=== PATIENT | male | born 1965 | race Caucasian/White ===

== ENCOUNTER 2017-02-24 12:46 | Emergency (ER) | payer OTHER ==
[2017-02-24 13:21] LABS: #Eosinphils 0.1 thou/uL (0.0-0.7); #Monocytes 0.4 thou/uL (0.11-0.59); #Neutrophils 7.5 thou/uL (1.40-6.50); %Basophils 0.4 % (0.0-1.0); %Eosinophils 0.5 % (0.0-10.0); %Lymphocytes 20.3 % (21.0-51.0); %Monocytes 3.9 % (0.0-10.0); Hematocrit 46.4 % (42.0-52.0); Mean Platelet Volume 7.1 fL (7.4-10.4); Red Blood Cell (RBC) Count 5.05 mill/uL (4.70-6.10)
[2017-02-24 13:44] LABS: ALT (SGPT) 17 U/L (8-55); AST (SGOT) 14 U/L (5-34); Alkaline Phosphatase 93 U/L (40-150); Anion Gap 19 mmol/L (10-20); BUN (Urea Nitrogen) 17 mg/dL (8.4-25.7); Bilirubin, Total 1.3 mg/dL (0.2-1.2); CK (CPK) 119 U/L (30-200); Calc. Creatinine Clearance 0 mL/min (70-130); Calcium 10.1 mg/dL (7.8-10.44); Carbon Dioxide 21 mmol/L (22-29); Chloride 96 mmol/L (98-107); Estimated GFR-MDRD 73; Globulin 3.3 g/dL (2.4-3.5)
[2017-02-24 13:47] LABS: Troponin I Less than 0.010 ng/mL (< 0.028)
[2017-02-24] MEDS ORDERED: Nitroglycerin 0.4 MG TAB (25 Tab Bottle) ONE (14:00)
[2017-02-24 14:06] LABS: PTT 27.1 SEC (22.9-36.1); Prothrombin Time 12.3 SEC (12.0-14.7)
--- NOTE | 2017-02-24 14:26 | RAD ---
PORTABLE CHEST ONE VIEW: Date: 02-24-17 Time: 1:33 p.m. History: Chest pain. FINDINGS: Comparison is made with exam of 10-27-16. The heart size is normal. The lungs are expanded without focal areas of consolidation, pneumothorax, or pleural effusions. IMPRESSION: No radiographic evidence of acute cardiopulmonary process. POS: [facility]
--- NOTE | 2017-02-24 16:06 | CT ---
CT OF THE CHEST WITH IV CONTRAST CT OF THE ABDOMEN AND PELVIS WITH IV CONTRAST 02/24/17 INDICATION: History of chest pain and shortness of breath. Patient is also having a productive cough. The patien t has had a 30 lb weight loss over the last few months. Patient is having painful swallowing with th e chest pain. FINDINGS: The lungs are clear. No pleural effusion or pneumothorax is evident. No enlarged lymph nodes are see n within the mediastinum, hilar, or axillary regions. Heart and great vessels appear within normal l imits. No focal hepatic lesion is evident. The visualized spleen is unremarkable appearing. The pancreas, adrenal glands and kidneys are normal appearing. The bladder is unremarkable appearing. The prostate is mildly enlarged. There is a mild amount of re tained stool within the colon. No definite drainable fluid collection is evident. There is no obstru ctive bowel gas pattern. There are old pedicle screw holes seen within the L5 vertebra, L4 vertebra and L3 vertebra. No defin ite acute osseous abnormality is evident. IMPRESSION: No definite acute abnormality seen. POS: [facility]
[2017-02-24 18:38] LABS: Troponin I Less than 0.010 ng/mL (< 0.028)
== END 2017-02-24 18:41 | disposition home or self-care (01) ==
LOC: ERS 12:46
DX: R07.89 Other chest pain (principal); E11.9 Type 2 diabetes mellitus without complications; Z87.891 Personal history of nicotine dependence; Z79.4 Long term (current) use of insulin
CPT/HCPCS: 36415; 71010; 71260; 74177; 80053; 82553; 83690; 83880; 84484; 85025; 85379; 93005; 94760

== ENCOUNTER 2017-05-13 07:58 | Inpatient (IN) | payer SELFPAY ==
[2017-05-13 08:36] LABS: #Eosinphils 0.2 thou/uL (0.0-0.7); #Lymphocytes 2.1 thou/uL (1.20-3.40); #Monocytes 0.4 thou/uL (0.11-0.59); #Neutrophils 8.7 thou/uL (1.40-6.50); %Basophils 0.3 % (0.0-1.0); %Eosinophils 1.4 % (0.0-10.0); %Lymphocytes 18.8 % (21.0-51.0); %Monocytes 3.2 % (0.0-10.0); %Neutrophils 76.3 % (42.0-75.0); Hemoglobin 17.4 g/dL (14.0-18.0); Mean Corpuscular HGB CONC 32.5 g/dL (32.0-36.0); Mean Corpuscular Hemoglobin 30.8 pg (27.0-31.0); Mean Corpuscular Volume 94.9 fl (80.0-94.0); Mean Platelet Volume 7.6 fL (7.4-10.4); Platelet Count 237 thou/uL (130-400); RBC Distribution Width 12.4 % (11.5-14.5); Red Blood Cell (RBC) Count 5.64 mill/uL (4.70-6.10); White Blood Cell (WBC) Count 11.4 thou/uL (4.8-10.8)
--- NOTE | 2017-05-13 08:38 | RAD ---
PORTABLE CHEST ONE VIEW: 05/13/2017 8:22 a.m. HISTORY: Chest pain. COMPARISON: 02/24/2017 FINDINGS: The heart size is normal. The lungs are well expanded without focal areas of consolidation, pneumoth orax, or pleural effusions. IMPRESSION: No radiographic evidence of acute cardiopulmonary process. POS: [facility]
[2017-05-13 08:49] LABS: Bicarbonate (HCO3v) 14.8 mmol/L (1.0-85.0); CO2 Tension (PvCO2) 30.5 mmHg (41.0-51.0); Calcium, Ionized 1.06 mmol/L (1.12-1.32); Hemoglobin - Calc 18.5 g/dL (12.0-18.0); O2 Tension (PvO2) 47.2 mmHg (35.0-45.0); Potassium 4.6 mmol/L (3.4-4.7); T. Carbon Dioxide 15.8 mmol/L (1.0-85.0); pH (Venous) 7.295 (7.35-7.45)
[2017-05-13] MEDS ORDERED: Insulin Regular 300 UNITS/3 ML VIAL ONE (08:50)
[2017-05-13 08:52] LABS: ALT (SGPT) 32 U/L (8-55); AST (SGOT) 17 U/L (5-34); Alkaline Phosphatase 76 U/L (40-150); Anion Gap 30 mmol/L (10-20); BUN (Urea Nitrogen) 22 mg/dL (8.4-25.7); Bilirubin, Total 1.6 mg/dL (0.2-1.2); CK (CPK) 51 U/L (30-200); Calc. Creatinine Clearance 0 mL/min (70-130); Calcium 10.9 mg/dL (7.8-10.44); Carbon Dioxide 16 mmol/L (22-29); Chloride 94 mmol/L (98-107); Estimated GFR-MDRD 65; Globulin 3.5 g/dL (2.4-3.5); Glucose 460 mg/dL (70-105); Lipase 6 U/L (8-78); Magnesium 1.6 mg/dL (1.6-2.6); Potassium 5.4 mmol/L (3.5-5.1); Protein, Total 8.5 g/dL (6.0-8.3); Sodium 135 mmol/L (136-145)
[2017-05-13 08:56] LABS: CKMB 0.7 ng/mL (0-6.6); Phosphorus 1.8 mg/dL (2.3-4.7); Troponin I Less than 0.010 ng/mL (< 0.028)
[2017-05-13 09:40] LABS: Bilirubin Negative (Negative); Blood, Urine Negative (Negative); Clarity CLEAR (Clear); Glucose, Urine (Dipstick) >=1000 mg/dL (Negative); Leukocyte Negative (Negative); Nitrite Negative (Negative); Protein, Urine (Dipstick) Negative (Neg-Trace); Specific Gravity, Urine 1.034 (1.002-1.036); Urobilinogen 0.2 mg/dL (0.2-1.0); pH, Urine 5.5 (5.0-9.0)
[2017-05-13] MEDS ORDERED: Insulin Regular 100 units/100 ml in NS IVPB SCH (10:45)
--- NOTE | 2017-05-13 12:02 | HP ---
DATE OF ADMISSION: 05/13/2017 CHIEF COMPLAINT: Diabetic ketoacidosis with dehydration and hypothermia. HISTORY OF PRESENT ILLNESS: The patient is a 52-year-old male who basically had been feeling fine on the day prior to admission. Then, on the day of admission, he began to have some burning chest pain . He had some nausea and vomiting twice. The pain went just shoulders and arms. Last time he was s een in my office was 1 month ago. There is no dyspnea, diaphoresis. Nothing relieved his pain. Whe n he came to the emergency room, he was initially evaluated under chest pain protocol and his results showed lactic acid at 6.9. His troponin was less than 0.01. CK-MB unremarkable; however, he did alfonso ve an elevated white count of 11.4. He was hemoconcentrated with hematocrit of 53.5 and hemoglobin 1 7.4. He was noted to have hyperkalemia at 5.4 and blood sugar 460. Chest x-ray unremarkable. He de nies any fever and chills. He did come back with greater than 80 ketones in his urine with an elevat ed beta hydroxybutyrate at 5.48. The ER doctor contacted Dr. Hummel about admission based on his alte red mental status as well and dehydration and the need for insulin drip while in the emergency room, the insulin drip was begun and heating blanket placed and as the patient was gradually resuscitated w ith fluids, heat, and insulin, he already has responded such that by my evaluation in the emergency r oom, his mental status has returned to baseline and he has no other further complaints at this time. PAST MEDICAL HISTORY: Noncompliant insulin-dependent diabetic for many years, most recently hospital ized in February for diabetic ketoacidosis. He has hypertension in the past, but since his extreme we ight loss, this has resolved. He has had chronic back pain in the past, but no longer is taking medi cation for that. PAST SURGICAL HISTORY: Includes 2 back surgeries and neck surgery. ALLERGIES: He has an allergic reaction to VANCOMYCIN. MEDICATIONS ON ADMISSION: Humalog and uses a sliding scale when he uses it. REVIEW OF SYSTEMS: GENERAL: He denies fever, chills, generally. HEENT: Denies blurred vision or d ischarge. ENT: No congestion, rhinorrhea discharge. CARDIOVASCULAR: He admits to chest pain radia ting to his left arm with burning sensation that has been worked up in the past and has negative. RE SPIRATORY: He denies cough, but has some mild shortness of breath. GENITOURINARY: Denies pain with urination or frequency. GASTROINTESTINAL: Admits to nausea and vomiting x2, but denies any abdomin al pain. MUSCULOSKELETAL: Denies any pain or swelling. SKIN: Without any rashes or lesions. NEUR OLOGIC: Denies headaches, blurred vision, and trouble with mentation. PHYSICAL EXAMINATION: VITAL SIGNS: On admission 133/76, pulse 78, respirations 20, O2 sat is 98% on room air. He had a co re temperature of 93.3. GENERAL: This is a well-developed, well-nourished male, alert, oriented, and cooperative. HEENT: Normocephalic and atraumatic. Pupils are equal, round, and reactive to light. Extraocular m uscles are intact. TMs, nares clear. Pharynx is dry. NECK: Supple, trachea midline, no mass or tenderness. CHEST: Clear to auscultation. HEART: Regular rate and rhythm with rate in the 90s. ABDOMEN: Soft and nontender without organomegaly. GENITOURINARY: Deferred. EXTREMITIES: Without clubbing, cyanosis, or edema. Normal range of motion present. SKIN: Without acute rashes or lesions. Poor turgor. NEUROLOGIC: Cranial nerves are intact. Mental status is not clear and at baseline. Cranial nerves are intact. Gait and cerebellar function untested. Sensory exam is grossly normal. LABORATORY DATA AND IMAGING DATA: WBC 11.4, hemoglobin 17.4, hematocrit 53.5 with platelets at 237. Sodium 135, potassium 5.4, chloride 94, CO2 of 16, BUN is 22, creatinine 1.18, glucose of 460, lacti c acid elevated at 6.9. Chest x-ray shows no acute process. ASSESSMENT: 1. Diabetic ketoacidosis. 2. Dehydration. 3. Hypothermia. 4. General medical noncompliance. PLAN: Will be IV fluids, IV insulin, serial reevaluation and warming blankets and going to [facility] on insulin drip.
[2017-05-13] MEDS ORDERED: Ondansetron HCl/PF 4 MG/2 ML Vial ONE (12:15)
[2017-05-13 12:42] LABS: Lactic Acid 2.5 mmol/L (0.5-2.2)
[2017-05-13] MEDS ORDERED: Acetaminophen 325 MG TAB PO PRN (16:11)
[2017-05-13] MEDS ORDERED: Ondansetron HCl/PF 4 MG/2 ML Vial SLOW IVP PRN (16:11)
[2017-05-13 17:01] VITALS: BMI 23.2
[2017-05-13] MEDS: traMADol HCl 50 MG TAB PO PRN ×2 (17:10→22:01)
[2017-05-13] MEDS: Sodium Chloride 0.9% 1,000 ML IV SCH (17:10)
[2017-05-13] MEDS ORDERED: FLU VACC QS2017-18 36 mo. & older 0.5 ML SYRINGE IM ONE (17:30)
[2017-05-13] MEDS ORDERED: Dextrose 50% Abboject 50 ML SYRINGE IVP PRN (22:29)
[2017-05-13] MEDS ORDERED: Dextrose 5% in Water 1,000 ML IV PRN (22:29)
[2017-05-13] MEDS ORDERED: Insulin Regular 300 UNITS/3 ML VIAL SC PRN (22:29)
[2017-05-13] MEDS ORDERED: Temazepam 15 MG CAP PO SCH (23:00)
[2017-05-14] MEDS: Sodium Chloride 0.9% 1,000 ML IV SCH ×2 (00:05→08:52)
[2017-05-14] MEDS: traMADol HCl 50 MG TAB PO PRN ×2 (02:21→06:08)
[2017-05-14 05:43] LABS: #Basophils 0.1 thou/uL (0.0-0.2); #Eosinphils 0.1 thou/uL (0.0-0.7); #Lymphocytes 1.7 thou/uL (1.20-3.40); #Monocytes 0.6 thou/uL (0.11-0.59); #Neutrophils 4.6 thou/uL (1.40-6.50); %Basophils 1.1 % (0.0-1.0); %Eosinophils 1.5 % (0.0-10.0); %Lymphocytes 24.6 % (21.0-51.0); %Monocytes 7.9 % (0.0-10.0); %Neutrophils 64.9 % (42.0-75.0); Hemoglobin 13.1 g/dL (14.0-18.0); Mean Corpuscular HGB CONC 32.6 g/dL (32.0-36.0); Mean Corpuscular Hemoglobin 30.6 pg (27.0-31.0); Mean Corpuscular Volume 93.8 fl (80.0-94.0); Mean Platelet Volume 7.4 fL (7.4-10.4); Platelet Count 163 thou/uL (130-400); Red Blood Cell (RBC) Count 4.29 mill/uL (4.70-6.10)
[2017-05-14] MEDS: Insulin Regular 300 UNITS/3 ML VIAL SC PRN ×2 (06:06→12:32)
[2017-05-14 06:13] LABS: Anion Gap 16 mmol/L (10-20); BUN (Urea Nitrogen) 11 mg/dL (8.4-25.7); Calc. Creatinine Clearance 104 mL/min (70-130); Calcium 8.2 mg/dL (7.8-10.44); Carbon Dioxide 18 mmol/L (22-29); Chloride 103 mmol/L (98-107); Estimated GFR-MDRD Greater than 90; Glucose 323 mg/dL (70-105); Potassium 4.3 mmol/L (3.5-5.1); Sodium 133 mmol/L (136-145)
[2017-05-14] MEDS ORDERED: Multivit, Therapeutic 1 TAB PO SCH (09:00)
[2017-05-14 09:01] VITALS: TEMP 97.7
[2017-05-14 12:05] VITALS: BP 108/68
[2017-05-14] MEDS ORDERED: Temazepam 15 MG CAP PO SCH (21:00)
== END 2017-05-14 12:42 | disposition home or self-care (01) | DRG 639 ==
LOC: ERS 07:58 → IMCU/EMU 16:52 → SURG A 05-14 02:18
PROVIDERS: ADMIT Specialist; ATTEND Specialist
DX: E11.10 Type 2 diabetes mellitus with ketoacidosis without coma (principal); T68.XXXA Hypothermia, initial encounter; E86.0 Dehydration; Z91.19 Patient's noncompliance with other medical treatment and regimen
CPT/HCPCS: 36415; 36416; 71010; 80048; 80053; 81003; 82010; 82330; 82553; 82803; 83605; 83690; 83735; 83880; 84100; 84484; 85025; 87040; 87086; 87804; 93005; 96361; 96365; 96366; 96372; 96375; A4216; J1815; J2405; J7050

== ENCOUNTER 2017-09-23 21:23 | Emergency (ER) | payer SELFPAY ==
[2017-09-23 21:59] LABS: #Basophils 0.1 thou/uL (0.0-0.2); #Eosinphils 0.2 thou/uL (0.0-0.7); #Lymphocytes 3.6 thou/uL (1.20-3.40); #Monocytes 0.6 thou/uL (0.11-0.59); #Neutrophils 6.4 thou/uL (1.40-6.50); %Basophils 0.9 % (0.0-1.0); %Eosinophils 1.9 % (0.0-10.0); %Lymphocytes 33.3 % (21.0-51.0); %Monocytes 5.1 % (0.0-10.0); %Neutrophils 58.9 % (42.0-75.0); Hemoglobin 14.5 g/dL (14.0-18.0); Mean Corpuscular HGB CONC 34.9 g/dL (32.0-36.0); Mean Corpuscular Hemoglobin 32.5 pg (27.0-31.0); Mean Corpuscular Volume 93.2 fl (80.0-94.0); Mean Platelet Volume 6.8 fL (7.4-10.4); Platelet Count 217 thou/uL (130-400); RBC Distribution Width 12.8 % (11.5-14.5); Red Blood Cell (RBC) Count 4.48 mill/uL (4.70-6.10); White Blood Cell (WBC) Count 10.9 thou/uL (4.8-10.8)
--- NOTE | 2017-09-23 22:07 | RAD ---
THREE VIEWS OF THE RIGHT HAND 09/23/17 INDICATION: Right thumb swelling and redness. COMPARISON: None. FINDINGS: No acute fracture or subluxation is evident. 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 No radiopaque fo reign body is demonstrated. IMPRESSION: 1. No acute osseous abnormality. 2. No radiopaque foreign body. POS: [facility]
[2017-09-23 22:19] LABS: ALT (SGPT) 25 U/L (8-55); AST (SGOT) 19 U/L (5-34); Albumin 4.1 g/dL (3.5-5.0); Alkaline Phosphatase 101 U/L (40-150); Anion Gap 11 mmol/L (10-20); BUN (Urea Nitrogen) 14 mg/dL (8.4-25.7); Bilirubin, Total 0.4 mg/dL (0.2-1.2); CRP (Inflammatory) Less than 0.50 mg/dL (= or < 0.5); Calc. Creatinine Clearance 0 mL/min (70-130); Calcium 9.3 mg/dL (7.8-10.44); Carbon Dioxide 27 mmol/L (22-29); Chloride 104 mmol/L (98-107); Estimated GFR-MDRD Greater than 90; Globulin 2.9 g/dL (2.4-3.5); Glucose 196 mg/dL (70-105); Potassium 4.1 mmol/L (3.5-5.1); Sodium 138 mmol/L (136-145)
[2017-09-23] MEDS ORDERED: Ketorolac Tromethamine 60 MG/2 ML VIAL ONE (22:55)
[2017-09-23] MEDS ORDERED: Ketorolac Tromethamine 30 MG/ML VIAL ONE (23:43)
[2017-09-24] MEDS ORDERED: Lidocaine 4% Cream 5 GM TUBE w/ Tegaderm ONE (00:20)
[2017-09-24] MEDS ORDERED: CEFAZOLIN 1 GM VIAL ONE (00:45)
[2017-09-24] MEDS ORDERED: Lidocaine 1% PF 5 ML VIAL ONE (01:24)
[2017-09-24] MEDS ORDERED: Morphine 4 MG/ML VIAL ONE (02:28)
[2017-09-24] MEDS ORDERED: Adacel (T-DAP) 0.5 ML VIAL ONE (02:28)
== END 2017-09-24 03:01 | disposition home or self-care (01) ==
LOC: ERS 21:23
DX: L03.011 Cellulitis of right finger (principal); E11.9 Type 2 diabetes mellitus without complications; Z87.891 Personal history of nicotine dependence; Z79.4 Long term (current) use of insulin; Z23 Encounter for immunization
CPT/HCPCS: 26010; 36415; 36416; 80053; 85025; 86140; 90471; 90715; 96374; 96375; J0690; J1885; J2001; J2270

== ENCOUNTER 2018-08-08 12:55 | Emergency (ER) | payer OTHER, SELFPAY ==
[2018-08-08] MEDS ORDERED: Ondansetron ODT 4 MG TAB ONE (13:21)
[2018-08-08 13:48] LABS: #Lymphocytes 1.7 thou/uL (1.20-3.40); #Monocytes 0.3 thou/uL (0.11-0.59); #Neutrophils 9.5 thou/uL (1.40-6.50); %Basophils 0.2 % (0.0-1.0); %Eosinophils 0.3 % (0.0-10.0); %Monocytes 2.7 % (0.0-10.0); %Neutrophils 81.7 % (42.0-75.0); Hemoglobin 16.9 g/dL (14.0-18.0); Mean Corpuscular HGB CONC 33.2 g/dL (32.0-36.0); Mean Corpuscular Hemoglobin 29.9 pg (27.0-31.0); Mean Platelet Volume 7.9 fL (7.4-10.4); Platelet Count 234 thou/uL (130-400); RBC Distribution Width 12.7 % (11.5-14.5); Red Blood Cell (RBC) Count 5.65 mill/uL (4.70-6.10); White Blood Cell (WBC) Count 11.6 thou/uL (4.8-10.8)
[2018-08-08] MEDS ORDERED: Mag-Al 1200 mg/1200 mg/30 ML UDCUP ONE (13:51)
[2018-08-08] MEDS ORDERED: Lidocaine Viscous Sol 2% 15 ml UD Cup ONE (13:51)
--- NOTE | 2018-08-08 13:53 | RAD ---
FAP view chest HISTORY: chest pain The lungs are well aerated. No evidence of active intrathoracic disease seen. No evidence of effusion s, pneumonia or pneumothorax seen. IMPRESSION: Normal AP portable view chest.
[2018-08-08] MEDS ORDERED: Ondansetron PF 4 MG/2 ML Vial ONE (13:54)
[2018-08-08 14:03] LABS: ALT (SGPT) 16 U/L (8-55); AST (SGOT) 12 U/L (5-34); Alkaline Phosphatase 88 U/L (40-150); Anion Gap 20 mmol/L (10-20); BUN (Urea Nitrogen) 15 mg/dL (8.4-25.7); Bilirubin, Total 1.4 mg/dL (0.2-1.2); Calc. Creatinine Clearance 0 mL/min (70-130); Calcium 10.6 mg/dL (7.8-10.44); Carbon Dioxide 21 mmol/L (22-29); Chloride 100 mmol/L (98-107); Estimated GFR-MDRD 80; Globulin 3.1 g/dL (2.4-3.5); Glucose 219 mg/dL (70-105); Potassium 4.1 mmol/L (3.5-5.1); Protein, Total 8.1 g/dL (6.0-8.3); Sodium 137 mmol/L (136-145)
[2018-08-08] MEDS ORDERED: Promethazine HCl 25 MG/ML VIAL ONE (15:19)
== END 2018-08-08 15:33 | disposition home or self-care (01) ==
LOC: ERS 12:55
DX: R07.9 Chest pain, unspecified (principal); R11.2 Nausea with vomiting, unspecified; E11.9 Type 2 diabetes mellitus without complications; Z87.891 Personal history of nicotine dependence; Z79.4 Long term (current) use of insulin
CPT/HCPCS: 36416; 71045; 80053; 82010; 84484; 85025; 93005; 96361; 96365; 96375; J2405; J2550; Q0162

== ENCOUNTER 2018-09-14 14:14 | Observation (INO) | payer OTHER ==
[2018-09-14] MEDS ORDERED: Ondansetron PF 4 MG/2 ML Vial ONE (14:30)
[2018-09-14] MEDS ORDERED: Morphine 4 MG/ML VIAL ONE ×2 (14:30→16:17)
--- NOTE | 2018-09-14 15:34 | CT ---
CT PULMONARY ANGIOGRAM WITH IV CONTRAST AND 3D POST PROCESSING: HISTORY: Chest pain. FINDINGS: No filling defects are seen in the central pulmonary arteries, to suggest central pulmonary embolism. The peripheral pulmonary arteries are not satisfactorily evaluated due to inadequate opacification. The thoracic aorta is well opacified without aneurysm or dissection. No pleural or pericardial eff usions are seen. No pneumothoraces, focal areas of consolidation, or lung masses/pulmonary nodules a re seen. There are degenerative changes in the spine. IMPRESSION: No CT evidence of central pulmonary embolism or thoracic aortic aneurysm/dissection. POS: [facility]
[2018-09-14] MEDS ORDERED: Promethazine HCl 25 MG/ML VIAL ONE (16:17)
[2018-09-14] MEDS ORDERED: Ondansetron PF 4 MG/2 ML Vial IVP PRN (16:30)
[2018-09-14] MEDS ORDERED: Acetaminophen 325 MG TAB PO PRN (16:30)
[2018-09-14] MEDS ORDERED: HYDROcodone/Acetaminophen 5/325 mg Tablet PO PRN ×2 (16:30)
[2018-09-14] MEDS ORDERED: Ondansetron ODT 4 MG TAB SL PRN (16:30)
[2018-09-14] MEDS ORDERED: ISOVUE-370 76%-LOCM 1 ML ONE (16:45)
[2018-09-14] MEDS ORDERED: Aspirin 325 MG TAB ONE (16:57)
[2018-09-14] MEDS ORDERED: Nitroglycerin 2% Ointment 1 INCH/1 GM Packet ONE (16:57)
[2018-09-14] MEDS: Nitroglycerin 2% Ointment 1 INCH/1 GM Packet TOP SCH ×2 (19:51→23:53)
[2018-09-14 20:34] LABS: Troponin I Less than 0.010 ng/mL (< 0.028)
[2018-09-14] MEDS ORDERED: Buprenorphine 8mg/Naloxone 2mg per 1 FILM SL SCH (21:00)
[2018-09-14] MEDS ORDERED: Dextrose 5% in Water 1,000 ML IV PRN (21:01)
[2018-09-14] MEDS ORDERED: Dextrose 50% Abboject 50 ML SYRINGE IVP PRN (21:01)
[2018-09-14] MEDS ORDERED: Sodium Chloride 0.9% 1,000 ML IV SCH (21:15)
[2018-09-14] MEDS: diphenhydrAMINE 12.5 MG/5 ML UDCUP PO PRN (21:37)
[2018-09-14] MEDS: Insulin Regular 300 UNITS/3 ML VIAL SC PRN (21:38)
[2018-09-14 23:04] LABS: Troponin I 0.011 ng/mL (< 0.028)
[2018-09-14] MEDS: Sodium Chloride 0.9% 1,000 ML IV SCH (23:48)
[2018-09-15] MEDS: Promethazine HCl 25 MG/ML VIAL SLOW IVP PRN ×3 (04:01→23:06)
[2018-09-15] MEDS: Sodium Chloride 0.9% 1,000 ML IV SCH ×4 (04:10→18:31)
[2018-09-15 05:13] LABS: Hemoglobin A1c 9.9 % (4.0-6.0)
[2018-09-15 05:36] LABS: Anion Gap 10 mmol/L (10-20); BUN (Urea Nitrogen) 13 mg/dL (8.4-25.7); Calc. Creatinine Clearance 103 mL/min (70-130); Calcium 7.9 mg/dL (7.8-10.44); Carbon Dioxide 19 mmol/L (22-29); Chloride 108 mmol/L (98-107); Estimated GFR-MDRD Greater than 90; Glucose 255 mg/dL (70-105); Potassium 4.2 mmol/L (3.5-5.1); Sodium 133 mmol/L (136-145)
[2018-09-15] MEDS: Insulin Regular 300 UNITS/3 ML VIAL SC PRN ×3 (06:08→21:34)
[2018-09-15] MEDS: Buprenorphine 8mg/Naloxone 2mg per 1 FILM SL SCH (11:59)
--- NOTE | 2018-09-15 13:24 | NM ---
EXAM: NM Cardiac Stress W EF WF PROVIDED CLINICAL HISTORY: Chest pain COMPARISON: None RADIOPHARMACEUTICAL: 27 mCi millicuries technetium 99m labeled sestamibi IV stress 9.4 mCi millicuries technetium 99m labeled sestamibi IV rest FINDINGS: There is normal, homogeneous distribution of radiotracer throughout the left ventricular myocardium. Gated data demonstrate normal myocardial wall motion and thickening with calculated LVEF 62%. Calculated TID is 1.1. IMPRESSION: 1. No scintigraphic evidence for ischemia. 2. Calculated LVEF 62%.
[2018-09-15 14:01] VITALS: BMI 21.5
[2018-09-15] MEDS ORDERED: ADENOSINE 60 MG/20 ML VIAL ONE (16:46)
--- NOTE | 2018-09-15 18:22 | ULT ---
Right upper quadrant ultrasound: 09/15/2018 COMPARISON: None HISTORY: Nausea and vomiting TECHNIQUE: Multiplanar grayscale sonographic imaging of the right upper quadrant obtained. FINDINGS: Imaged pancreas unremarkable. No focal liver lesion or intrahepatic biliary dilatation. No gallbladder wall thickening or pericholecystic fluid. No gallstones noted. The complaints coordinator reports a negative Fisher's sign. The common bile duct measures 3 mm, within normal limits. The right kidney measures 13.7 cm in craniocaudal dimension and demonstrates no stone hydronephrosis or mass lesion. IMPRESSION: No acute findings.
--- NOTE | 2018-09-15 20:42 | HP ---
CHIEF COMPLAINT: Chest pain with nausea and vomiting. HISTORY OF PRESENT ILLNESS: The patient is a 53-year-old male with long history of noncompliant and insulin-dependent diabetes, who began actually several days ago, having some chest pressure discomfort. His began to smell the ketosis in his breath. She did not respond to that; however, he came to the emergency room a week earlier with the same issues. They evaluated him and sent him home on this particular trip; however. Again, his troponins trended normal and [facility]. They said that they would take him if we could transport him. He had no funds for that and because his troponins were trending negative, he was allowed to be discharged from the emergency room. On the way out to his car, he began to get extremely diaphoretic and vomited. At which point, he was readmitted to the ER and Dr. Hummel was contacted to go ahead and do a cardiac [facility] workup. Since admission, his blood sugars have been relatively high. He has been weak, complaining of sore throat, IV fluid rehydration and resuscitation was initiated and he has responded quite well to that. PAST MEDICAL HISTORY: As indicated above; type 2 noncompliant insulin-dependent diabetic, chronic back pain, history of polysubstance abuse, multiple hospitalizations for diabetic ketoacidosis, usually because of noncompliance, hypertension in the past, but has normalized since extreme weight loss. PAST SURGICAL HISTORY: Includes two back surgeries and a neck surgery. Appendectomy and tonsillectomy as well as right knee surgery. ALLERGIES: ALLERGIES ARE TO VANCOMYCIN. ON HIS ALLERGIES, IT IS MORE THAN VANCOMYCIN, IT IS LEVOFLOXACIN WELL. PSYCHIATRIC HISTORY: Significant for anxiety and episodes of depression. SOCIAL HISTORY: He is . Former tobacco smoker, quit smoking less than 10 years ago. Denies alcohol use and as mentioned above, has had prior usage of illegal substances including marijuana and I believe it was crystal meth. CURRENT MEDICATIONS: Include; 1. Lantus 30 units subcu daily. 2. Humalog sliding scale. 3. Attempts at oral medications have failed due to noncompliance. REVIEW OF SYSTEMS: CONSTITUTIONAL: Positive for general malaise and fatigue, but denies fever or chills. HEENT: Denies drainage from ears, nose, or throat or open sores. CHEST: Admits to chest pain radiating to his neck. Denies shortness of breath. CARDIOVASCULAR: He has had palpitations with diaphoresis. GI: Positive for nausea and vomiting. Negative for diarrhea. : Negative for blood in urine or stool or dysuria. MUSCULOSKELETAL: Positive for general weakness in the muscle groups, but no pain in the joints or erythema. SKIN: No acute lesions. NEUROLOGIC: No trouble with mentation, areas of hypesthesia or anesthesia. ENDOCRINE: Hemolytic. LYMPH: No new concerns for edema, ecchymosis, or bruising. PHYSICAL EXAMINATION: VITAL SIGNS: Blood pressure 175/89, pulse 114, respirations 26, and temperature 98.0. Pain scale at a 10/10. O2 saturation 100% on room air. GENERAL: This was a thin, male, alert, cooperative, and responsive. HEENT: Normocephalic and atraumatic. Pupils are equal, round, and reactive to light. Extraocular muscles are intact. TMs, nares, and pharynx are clear. NECK: Supple. Trachea midline. No mass. No bruits. CHEST: Clear to auscultation. HEART: Regular rate and rhythm without murmur and it is tachycardic. ABDOMEN: Soft without hepatosplenomegaly, and nontender. : Deferred. EXTREMITIES: Without clubbing, cyanosis, or edema. Normal range of motion present. Normal muscle tone development. SKIN: Without acute rashes or lesions and diminished turgor. Also, mucous membranes are dry. NEUROLOGIC: Cranial nerves are intact. Gait and cerebellar function normal. Sensory exam is intact. Mental status is at baseline. Nonfocal. LABORATORY DATA: Lab work on admission showed WBCs 8.8, hemoglobin 15.3, hematocrit 44.7 with platelets at 196, and unremarkable diff. His sodium was 133, potassium 4.2, chloride 108, CO2 of 19 with an anion gap of 10, BUN 13, creatinine 0.83 with a GFR greater than 90. Point of care glucose on initial hospitalization was over 300. Hemoglobin A1c 9.9. Troponins I's have all been negative. ASSESSMENT: 1. Chest pain probably noncardiac. 2. Early diabetic ketoacidosis. 3. History of type 2 insulin-dependent diabetic with history of poor compliance. PLAN: 1. Rule out cardiac etiology of chest pain. 2. Treat for early DKA with resuscitative fluids, antiemetics, and monitoring his electrolytes. 3. Serially re-evaluate the patient. He will get a nuclear medicine stress test. Job ID: [id number]
[2018-09-16] MEDS: Sodium Chloride 0.9% 1,000 ML IV SCH ×4 (02:20→22:51)
[2018-09-16] MEDS: Promethazine HCl 25 MG/ML VIAL SLOW IVP PRN ×3 (04:12→13:41)
[2018-09-16 05:39] LABS: #Eosinphils 0.1 thou/uL (0.0-0.7); #Lymphocytes 1.8 thou/uL (1.20-3.40); #Monocytes 0.5 thou/uL (0.11-0.59); #Neutrophils 6.4 thou/uL (1.40-6.50); %Basophils 0.4 % (0.0-1.0); %Eosinophils 0.9 % (0.0-10.0); %Lymphocytes 20.5 % (21.0-51.0); %Monocytes 5.9 % (0.0-10.0); %Neutrophils 72.2 % (42.0-75.0); Hemoglobin 11.8 g/dL (14.0-18.0); Mean Corpuscular HGB CONC 34.8 g/dL (32.0-36.0); Mean Corpuscular Hemoglobin 31.5 pg (27.0-31.0); Mean Corpuscular Volume 90.5 fL (78.0-98.0); Mean Platelet Volume 7.7 fL (7.4-10.4); Platelet Count 179 thou/uL (130-400); RBC Distribution Width 12.7 % (11.5-14.5); Red Blood Cell (RBC) Count 3.75 mill/uL (4.70-6.10); White Blood Cell (WBC) Count 8.9 thou/uL (4.8-10.8)
[2018-09-16 05:59] LABS: Anion Gap 19 mmol/L (10-20); BUN (Urea Nitrogen) 7 mg/dL (8.4-25.7); Calc. Creatinine Clearance 113 mL/min (70-130); Calcium 8.7 mg/dL (7.8-10.44); Carbon Dioxide 18 mmol/L (22-29); Chloride 105 mmol/L (98-107); Estimated GFR-MDRD Greater than 90; Glucose 241 mg/dL (70-105); Potassium 3.9 mmol/L (3.5-5.1); Sodium 138 mmol/L (136-145)
[2018-09-16] MEDS: Insulin Regular 300 UNITS/3 ML VIAL SC PRN ×2 (06:14→16:54)
[2018-09-16] MEDS: Buprenorphine 8mg/Naloxone 2mg per 1 FILM SL SCH (09:24)
[2018-09-16] MEDS: Metoclopramide HCl 10 MG/2 ML VIAL IVP PRN ×2 (10:51→17:00)
[2018-09-16] MEDS ORDERED: Sodium Chloride 0.9% (PF) 10 ML VIAL FS PRN (14:22)
[2018-09-16] MEDS ORDERED: INSULIN ASPART SQ SCH (16:30)
--- NOTE | 2018-09-16 17:15 | CON ---
DATE OF CONSULTATION: 09/16/2018 REASON FOR CONSULTATION: Chronic nausea and vomiting. CONSULTING PHYSICIAN: Dr. Giorgio Hummel. HISTORY OF PRESENT ILLNESS: The patient is a 53-year-old male with past medical history of chronic lower back pain, hypertension, history of polysubstance abuse, and uncontrolled diabetes, presenting with complaints of chest pain, nausea, and vomiting. He states that he has been having intermittent episodes of nausea and vomiting that have been present for the last 3 years since his initial episode of DKA while taking Invokana. These episodes of nausea and vomiting will occur every few months, characterized as 3-5 days, but really have increased nausea and vomiting, vomiting approximately 2-3 times per day, characterized as forceful retching of undigested material (usually stuff that he did eat earlier in the day). However, over the last 3 years, it has been increasing in frequency in terms of these episodes. Between the episodes, he will be completely asymptomatic with no episodes of nausea or vomiting at all. In reference to his vomiting, there does not seem to be any clear exacerbating factors or inciting incidents that bring on his vomiting, but better with the actual vomiting episode itself with roughly complete symptom relief after he actually vomits. More recently, he has been having complaints of increased chest pressure, that has intermittently been occurring over the last 1 to 2 weeks. He had been evaluated in the ER previously and discharged to home after evaluation for cardiac etiology, it was negative. However, on admission, he was noted to have significantly elevated blood sugars with high concern for early diabetic ketoacidosis or full-blown DKA. While here in the hospital, he has been more adequately treated for his blood sugars and states that his nausea and vomiting have gotten somewhat better today, but did have frequent episodes of vomiting last night. Currently, he denies any fevers, chills, abdominal pain, hematemesis, melena, hematochezia, or odynophagia. Of note, he does complain of intermittent episodes of dysphagia as well, that have been present for at least the last year. This dysphagia is characterized as a sensation that solid and liquid food would get stuck and roughly in the level of the sternal notch, but would occur intermittently where he would go months in between episodes. He also adds that he [facility], that was normal. REVIEW OF SYSTEMS: A 10-category review of systems was obtained with all responses negative except for the pertinent positives as listed in HPI. PAST MEDICAL HISTORY: As per HPI. PAST SURGICAL HISTORY: 1. Back surgery x2. 2. Neck surgery on cervical disk. 3. Appendectomy. 4. Tonsillectomy. 5. Right knee surgery. FAMILY HISTORY: Denies any GI malignancies. SOCIAL HISTORY: Denies any tobacco or alcohol use. However, he does smoke marijuana intermittently weekly. OUTPATIENT MEDICATIONS: Reviewed. ALLERGIES: 1. VANCOMYCIN. 2. LEVOFLOXACIN. PHYSICAL EXAMINATION: VITAL SIGNS: Temperature 98.6, pulse 88, blood pressure 118/62, respiratory rate 16, and saturating 96% on room air. GENERAL: The patient was lying in bed, in no acute distress. Alert and oriented x4. HEENT: Normocephalic and atraumatic. No scleral icterus or JVD noted. CARDIOVASCULAR: Tachycardic rate, but regular rhythm. No discernible murmurs, gallops, or rubs. RESPIRATORY: Clear to auscultation bilaterally with no discernible wheezes or rales. ABDOMEN: Normoactive bowel sounds. Soft, nondistended, mild tenderness to palpation in the midepigastric region, but otherwise normal. EXTREMITIES: No cyanosis, clubbing, or edema. LABORATORY DATA: CBC with a white blood cell count of 8.9, hemoglobin 11.8, hematocrit 34, and platelets 179. Chemistry with a sodium of 138, potassium 3.9, chloride 105, CO2 of 18, BUN 7, creatinine 0.76, and glucose 241. IMAGING DATA: CT angiography of the chest performed on 09/14/2018, showed no evidence of pulmonary embolism or aortic dissection. A nuclear stress test was performed on 09/15, with no evidence of ischemia and an ejection fraction of approximately 62%. A right upper quadrant ultrasound was performed on 09/15, with no evidence of liver lesions or biliary dilatation with the common bile duct measuring 3 mm in diameter. ASSESSMENT AND PLAN: The patient is a 53-year-old male with past medical history of chronic lower back pain, history of polysubstance abuse with ongoing marijuana use, hypertension, and uncontrolled diabetes, presenting with chronic nausea and vomiting. Chronic nausea and vomiting: The patient is presenting with nausea vomiting that have been present intermittently at least for the last 3 years, but has been increasing in terms of frequency. His vomiting episodes are characterized as 1-2 weeks of intermittent vomiting, but having approximately 2 to 3 episodes of emesis per day during these cycles and also characterized as more forceful type retching. When he does actually vomit, it will be accompanied with significant diaphoresis, but also relieved his nauseated sensations at the same time. Given his history of uncontrolled diabetes due to noncompliance in the past, the likelihood of gastroparesis is higher, in which case he may benefit from a gastric emptying study to confirm this particular diagnosis. However, he does also use marijuana on a more frequent basis, making cannabinoid hyperemesis syndrome part of the differential as well. Lastly, with uncontrolled sugars, it could also generate symptoms of nausea and vomiting associated with diabetic ketoacidosis, which could be contributing to his current clinical picture as well. RECOMMENDATIONS: 1. We would attempt to maintain strict control of blood sugars while inpatient. 2. We will place the patient on a PPI 40 mg twice daily for possible acid reflux versus possible esophagitis related to frequent nausea and vomiting. 3. Agree with scheduling the antiemetics for better antiemetic relief. We would hold on metoclopramide for now given the possibility of gastric emptying study. 4. We would obtain a gastric empty study during this admission to evaluate for possible gastroparesis. 5. Advised the patient about stopping marijuana use altogether. We will continue to follow. Please call with any questions. Job ID: [id number]
[2018-09-16] MEDS: Promethazine HCl 12.5 MG in Sodium Chloride 0.9% 50 ML IVPB PRN (20:10)
[2018-09-16] MEDS: Pantoprazole 40 MG VIAL IVP SCH (20:10)
[2018-09-16] MEDS ORDERED: Insulin Glargine 30 UNITS in Pre-Filled Syringe 1 EACH SC SCH (21:00)
[2018-09-16] MEDS: diphenhydrAMINE 12.5 MG/5 ML UDCUP PO PRN (23:10)
[2018-09-17] MEDS: Metoclopramide HCl 10 MG/2 ML VIAL IVP PRN ×2 (03:46→23:55)
[2018-09-17] MEDS: Sodium Chloride 0.9% 1,000 ML IV SCH ×2 (04:21→13:17)
[2018-09-17] MEDS: Insulin Glargine 30 UNITS in Pre-Filled Syringe 1 EACH SC SCH (08:51)
[2018-09-17] MEDS: Pantoprazole 40 MG VIAL IVP SCH ×2 (08:51→21:11)
[2018-09-17] MEDS: Buprenorphine 8mg/Naloxone 2mg per 1 FILM SL SCH ×2 (08:52→13:17)
[2018-09-17] MEDS ORDERED: traMADol HCl 50 MG TAB PO SCH (09:15)
--- NOTE | 2018-09-17 15:04 | NM ---
QUANTITATIVE GASTRIC EMPTYING STUDY PROCEDURE: Following oral administration of radiolabeled food, labeled with technetium 99m sulfur co lloid, projection images of the abdomen were obtained at 15-minute intervals out to 60 minutes. When possible, both anterior and posterior projection images were obtained to allow the calculation o f the geometric mean activity. Radiopharmaceutical Dose Tc 99m sulfur colloid: 2 mCi COMPARISON: None. CLINICAL HISTORY: Evaluate for gastric emptying. Gastroparesis Chronic Nausea and Vomiting FINDINGS: 7% of tracer was cleared at 60 minutes. 28% of tracer was cleared at 245 minutes. T ? was not reached during the imaging exam. IMPRESSION: This is an abnormal gastric emptying study with evidence of delayed gastric emptying. Please note, that there are no normal values established for ages below 3 years (in adults 50% or mor e gastric emptying of a solid meal at 90 minutes is considered normal). ADULT NORMAL: Less than 63% remaining (or greater than 37% emptying) at 60 minutes. ADULT NORMAL: Less than 50% remaining (or greater than 50% emptying) at 90 minutes.
[2018-09-17] MEDS: Promethazine HCl 12.5 MG in Sodium Chloride 0.9% 50 ML IVPB PRN (17:00)
[2018-09-17] MEDS: Insulin Regular 300 UNITS/3 ML VIAL SC PRN (21:11)
[2018-09-18] MEDS: Sodium Chloride 0.9% 1,000 ML IV SCH ×3 (01:47→09:33)
[2018-09-18] MEDS: Insulin Regular 300 UNITS/3 ML VIAL SC PRN (05:05)
[2018-09-18 05:29] LABS: Hemoglobin A1c 9.6 % (4.0-6.0)
[2018-09-18] MEDS ORDERED: Metoclopramide HCl 10 MG TAB PO SCH (07:30)
[2018-09-18 08:13] VITALS: BP 160/83; TEMP 98.4
[2018-09-18] MEDS: Buprenorphine 8mg/Naloxone 2mg per 1 FILM SL SCH (09:30)
[2018-09-18] MEDS: Insulin Glargine 30 UNITS in Pre-Filled Syringe 1 EACH SC SCH (09:31)
[2018-09-18] MEDS: Pantoprazole 40 MG VIAL IVP SCH (09:32)
[2018-09-19 18:07] LABS: H. pylori IgA ABS Less than 9.0 units (0.0-8.9); H. pylori IgG ABS 0.62 (0.00-0.79); H. pylori IgM ABS Less than 9.0 units (0.0-8.9)
--- NOTE | 2018-09-22 13:30 | EKG ---
Test Reason : CHEST PAIN Blood Pressure : / mmHG Vent. Rate : 101 BPM Atrial Rate : 101 BPM P-R Int : 124 ms QRS Dur : 088 ms QT Int : 386 ms P-R-T Axes : 083 088 055 degrees QTc Int : 500 ms Sinus tachycardia Possible Left atrial enlargement Borderline ECG Confirmed by KINGA PALOMINO, STEFANIE ([id number]), clinical editor CLAY APONTE ([id number] on 09/22/2018 1:29:38 PM Referred By: LEIGH Confirmed By:STEFANIE DONATO MD
== END 2018-09-18 10:37 | disposition home or self-care (01) ==
LOC: ERS 14:14 → 2SW 18:56
PROVIDERS: ADMIT Specialist; ATTEND Specialist
DX: R07.2 Precordial pain (principal); I10 Essential (primary) hypertension; E11.10 Type 2 diabetes mellitus with ketoacidosis without coma; G89.29 Other chronic pain; M54.9 Dorsalgia, unspecified; F41.8 Other specified anxiety disorders; F32.9 Major depressive disorder, single episode, unspecified; Z79.4 Long term (current) use of insulin; Z79.899 Other long term (current) drug therapy; Z87.891 Personal history of nicotine dependence; Z88.1 Allergy status to other antibiotic agents; Z91.14 Patient's other noncompliance with medication regimen
CPT/HCPCS: 36415; 36416; 71045; 71275; 76705; 78264; 78452; 80048; 80053; 82550; 83036; 83690; 84484; 85025; 93005; 93017; 94760; 96360; 96361; 96374; 96375; 96376; A9500; A9541; C9113; G0378; J0153; J1815; J1825; J2270; J2405; J2550; J2765; J7050; J8597; Q0163; Q9966

== ENCOUNTER 2018-10-27 23:13 | Inpatient (IN) | payer OTHER ==
[2018-10-27] MEDS ORDERED: Ondansetron ODT 4 MG TAB ONE ×2 (23:22→23:25)
[2018-10-27] MEDS ORDERED: Metoclopramide HCl 10 MG/2 ML VIAL ONE (23:53)
[2018-10-27 23:54] LABS: #Basophils 0.1 thou/uL (0.0-0.2); #Lymphocytes 2.4 thou/uL (1.20-3.40); #Monocytes 0.4 thou/uL (0.11-0.59); #Neutrophils 14.3 thou/uL (1.40-6.50); %Basophils 0.6 % (0.0-1.0); %Eosinophils 0.2 % (0.0-10.0); %Lymphocytes 13.9 % (21.0-51.0); %Monocytes 2.4 % (0.0-10.0); %Neutrophils 82.9 % (42.0-75.0); Hemoglobin 16.5 g/dL (14.0-18.0); Mean Corpuscular HGB CONC 33.3 g/dL (32.0-36.0); Mean Platelet Volume 7.9 fL (7.4-10.4); Platelet Count 263 thou/uL (130-400); RBC Distribution Width 13.4 % (11.5-14.5); Red Blood Cell (RBC) Count 5.32 mill/uL (4.70-6.10); White Blood Cell (WBC) Count 17.2 thou/uL (4.8-10.8)
[2018-10-28 00:16] LABS: Base Excess-Venous -14.7 mmol/L (-2.0 to 3.0); Bicarbonate (HCO3v) 9.9 mmol/L (22.0-28.0); CO2 Tension (PvCO2) 21.9 mmHg (40.0-50.0); Calcium, Ionized 1.12 mmol/L (See Comments:); Chloride 103 mmol/L (98-107); O2 Tension (PvO2) 36.6 mmHg (35.0-45.0); Potassium 4.4 mmol/L (3.5-5.1); Sodium 130 mmol/L (138-145); T. Carbon Dioxide 10.6 mmol/L (22.0-28.0); pH (Venous) 7.264 (7.320-7.430); vO2 Saturation-calc 63.6 % (60.0-85.0)
[2018-10-28 00:17] LABS: Phosphorus 5.1 mg/dL (2.3-4.7)
[2018-10-28 00:17] LABS: ALT (SGPT) 28 U/L (8-55); AST (SGOT) 12 U/L (5-34); Albumin 4.8 g/dL (3.5-5.0); Alkaline Phosphatase 96 U/L (40-150); BUN (Urea Nitrogen) 22 mg/dL (8.4-25.7); Bilirubin, Total 0.9 mg/dL (0.2-1.2); Calc. Creatinine Clearance 0 mL/min (70-130); Calcium 10.8 mg/dL (7.8-10.44); Chloride 92 mmol/L (98-107); Estimated GFR-MDRD 46; Globulin 3.3 g/dL (2.4-3.5); Glucose 494 mg/dL (70-105); Potassium 4.8 mmol/L (3.5-5.1); Protein, Total 8.1 g/dL (6.0-8.3); Sodium 132 mmol/L (136-145)
[2018-10-28 00:19] LABS: Magnesium 1.6 mg/dL (1.6-2.6)
[2018-10-28 00:20] LABS: Carbon Dioxide Less than 8 mmol/L (22-29)
[2018-10-28] MEDS ORDERED: Insulin Regular 100 units/100 ml in NS IVPB SCH (00:45)
[2018-10-28] MEDS ORDERED: Metoclopramide HCl 10 MG/2 ML VIAL ONE (00:56)
[2018-10-28] MEDS ORDERED: Haloperidol Lactate 5 MG/ML VIAL ONE (01:09)
[2018-10-28 01:32] LABS: Bilirubin Negative (Negative); Blood, Urine Negative (Negative); Clarity CLEAR (Clear); Glucose, Urine (Dipstick) >=1000 mg/dL (Negative); Leukocyte Negative (Negative); Nitrite Negative (Negative); Protein, Urine (Dipstick) Trace mg/dL (Neg-Trace); Specific Gravity, Urine 1.023 (1.002-1.036); Urobilinogen 0.2 mg/dL (0.2-1.0); pH, Urine 5.5 (5.0-9.0)
[2018-10-28] MEDS ORDERED: NS 0.9% w/ 20 MEQ KCL 1,000 ML/1,000 ML BAG IV PRN ×2 (01:55)
[2018-10-28] MEDS ORDERED: Dextrose 5 %-0.45 % NaCl 1,000 ML IV PRN (01:55)
[2018-10-28] MEDS ORDERED: Dextrose 50% Abboject 50 ML SYRINGE SLOW IVP PRN (01:55)
[2018-10-28] MEDS ORDERED: Dextrose 5% in Water 1,000 ML IV PRN ×2 (01:55→21:35)
[2018-10-28] MEDS ORDERED: Sodium Chloride 0.9% 1,000 ML IV PRN ×4 (01:55)
[2018-10-28] MEDS ORDERED: Potassium Phosphate 9 MMOL in Sodium Chloride 0.9% 100 ML IVPB PRN (01:56)
[2018-10-28] MEDS ORDERED: PHOS-NAK 1 PKT PACK PO PRN ×2 (01:56)
[2018-10-28] MEDS ORDERED: Potassium Phosphate 12 MMOL in Sodium Chloride 0.9% 250 ML 250 ML IV PRN (01:56)
[2018-10-28] MEDS ORDERED: Magnesium Oxide 400 MG TAB PO PRN ×2 (01:56)
[2018-10-28] MEDS ORDERED: CCU ELECTROLYTE REPLACEMENT PROTOCOL FS PRN (01:56)
[2018-10-28] MEDS ORDERED: Magnesium 2 GM/50 ML 2 GM in Premix Bag 1 BAG IVPB PRN (01:56)
[2018-10-28] MEDS ORDERED: Potassium Chloride 40 MEQ in Premix Bag 1 BAG IVPB PRN (01:56)
[2018-10-28] MEDS ORDERED: Potassium Chloride 40 MEQ in Sodium Chloride 0.9% 250 ML 250 ML IVPB PRN (01:56)
[2018-10-28] MEDS ORDERED: Potassium Phosphate 15 MMOL in Sodium Chloride 0.9% 250 ML 250 ML IV PRN (01:56)
[2018-10-28] MEDS ORDERED: Potassium Chloride 20 MEQ TAB PO PRN (01:56)
[2018-10-28] MEDS ORDERED: ADD ELECTROLYTE REPLACEMENT SET TO PROFILE FS SCH (02:00)
[2018-10-28 02:09] VITALS: BP 154/87
[2018-10-28] MEDS: D5 1/2 NS w/20 mEq KCL 1,000 ML IV PRN ×3 (05:02→13:41)
[2018-10-28] MEDS: Ondansetron PF 4 MG/2 ML Vial SLOW IVP PRN ×2 (05:16→18:21)
[2018-10-28] MEDS: Acetaminophen 325 MG TAB PO PRN (05:57)
[2018-10-28 06:38] LABS: Anion Gap 14 mmol/L (10-20); BUN (Urea Nitrogen) 18 mg/dL (8.4-25.7); Calc. Creatinine Clearance 71 mL/min (70-130); Calcium 9.1 mg/dL (7.8-10.44); Carbon Dioxide 18 mmol/L (22-29); Chloride 108 mmol/L (98-107); Estimated GFR-MDRD 71; Glucose 179 mg/dL (70-105); Sodium 136 mmol/L (136-145)
[2018-10-28] MEDS ORDERED: Promethazine HCl 25 MG in Sodium Chloride 0.9% 50 ML IVPB PRN (10:14)
[2018-10-28] MEDS ORDERED: FLUoxetine HCl 20 MG CAP PO SCH (11:00)
[2018-10-28] MEDS ORDERED: Buprenorphine 8mg/Naloxone 2mg per 1 FILM SL SCH (11:00)
--- NOTE | 2018-10-28 11:43 | HP ---
CHIEF COMPLAINT: Diabetic ketoacidosis. HISTORY OF PRESENT ILLNESS: The patient is a 53-year-old male, who at 3:00 a.m. on the day of admission began to have nausea and vomiting. He has a history of diabetic gastroparesis, numerous attempts throughout the day to control his blood sugar in the emesis failed, so finally he came into the emergency room on the evening of admission, where he was found have a blood sugar elevated above 400. He had an anion gap and was acidotic. Dr. Hummel was contacted about admitting him and he is placed in IMCU for fluids, antiemetics, insulin drip, supportive measures. His pH at the time of admission was 7.26. WBCs 17.2, and carbon dioxide less than 8. His ketones were greater than 80. Beta-hydroxybutyrate 10.22. PAST MEDICAL HISTORY: Significant for numerous episodes of admission for diabetic ketoacidosis, type 2 insulin-dependent diabetic, calmly noncompliant, attends the [place] for most of his chronic illnesses. He has chronic back pain, history of polysubstance abuse, hypertension, noncompliant in the past on his medications. This has been normalized due to his extreme weight loss due to noncompliance. Last hospitalization for DKA was 09/14/2018. PAST SURGICAL HISTORY: Includes back surgeries and neck surgery, appendectomy, tonsillectomy, and right knee surgery. ALLERGIES: HE IS ALLERGIC TO VANCOMYCIN WELL LEVOFLOXACIN. PSYCHIATRIC HISTORY: Significant for anxiety and depression. SOCIAL HISTORY: He is . Former tobacco smoker. Quit more than 10 years ago. Denies alcohol use. Has regular chronic use of THC and other illicit drugs. CURRENT MEDICATIONS: Include Lantus 30 units subcu daily and a Humalog sliding scale as well as Prozac 20 mg daily. REVIEW OF SYSTEMS: CONSTITUTIONAL: Positive for general malaise, nausea, and vomiting. Denies fever and chills. HEENT: Denies drainage from ears, nose, or throat or open sores. CHEST: Denies shortness of breath or coughing. CARDIOVASCULAR: Denies palpitations or diaphoresis or chest pain. GASTROINTESTINAL: Significant for nausea and vomiting. Negative for diarrhea. GENITOURINARY: Negative for blood in urine or stool or dysuria. MUSCULOSKELETAL: Significant for general weakness in his major muscle groups, but no new aches or pains or joint swelling. SKIN: No acute rashes or lesions. NEUROLOGIC: Mentation is intact. Denies hypesthesia or hyperesthesia. ENDOCRINE: Denies any new edema, ecchymosis, or swelling. PHYSICAL EXAMINATION: VITAL SIGNS: At the time of admission, blood pressure 158/77, pulse 99, respirations 18, pain 8/10, O2 saturation at 98% on room air, and temperature 97.5. GENERAL: This is a well-developed, thin male, alert, oriented, and cooperative. HEENT: Normocephalic, atraumatic. Pupils are equal, round, and reactive to light. Extraocular muscles are intact. TMs and nares are clear. Pharynx is dry. NECK: Supple. Trachea midline. No mass. CHEST: Clear to auscultation. HEART: Regular rate and rhythm without murmur. ABDOMEN: Soft and nontender without hepatosplenomegaly. GENITOURINARY: Deferred. EXTREMITIES: Without clubbing, cyanosis, or edema. Normal range of motion present. SKIN: Without acute rashes or lesions. Turgor is diminished. NEUROLOGIC: Cranial nerves are intact. Gait and cerebellar are untested. Sensory is generally intact. Mental status is at baseline. LABORATORY DATA: Lab work on admission showed WBCs 17.2, hemoglobin 16.5, hematocrit 49.5 with platelets at 263. PH is 7.26 with a pCO2 of 21.9, and a pO2 of 36, this is venous. The sodium on admission was 132, potassium 4.8, chloride 92, CO2 less than 8, creatinine 1.6, BUN 22 with a GFR of 46, glucose 494 on admission, and calcium 10.8. Urinalysis shows ketones 80 and glucose greater than a 1000. Beta-hydroxybutyrate 10.22. ASSESSMENT: 1. Diabetic ketoacidosis. 2. Diabetic gastroparesis. 3. Insulin-dependent diabetes - noncompliant. 4. Chronic back pain. PLAN: Plan will be diabetic ketoacidosis protocol with fluid rehydration and resuscitation, antiemetics. We use insulin drip and eventual sliding scale. He will be serially re-evaluated. Job ID: [id number]
[2018-10-28] MEDS ORDERED: Dextrose 50% Abboject 50 ML SYRINGE IVP PRN (21:35)
[2018-10-28] MEDS: Sodium Chloride 0.9% 1,000 ML IV SCH (22:07)
[2018-10-29] MEDS: Sodium Chloride 0.9% 1,000 ML IV SCH (05:30)
[2018-10-29] MEDS: HumaLOG 300 UNITS/3 ML VIAL SC PRN ×2 (06:16→17:44)
[2018-10-29] MEDS ORDERED: Insulin Glargine 25 UNITS in Pre-Filled Syringe 1 EACH SC SCH (08:15)
[2018-10-29] MEDS: FLUoxetine HCl 20 MG CAP PO SCH (09:36)
[2018-10-29] MEDS: Buprenorphine 8mg/Naloxone 2mg per 1 FILM SL SCH (10:07)
[2018-10-30 03:40] VITALS: TEMP 98.4
[2018-10-30] MEDS: Acetaminophen 325 MG TAB PO PRN (03:47)
[2018-10-30 06:32] LABS: Anion Gap 10 mmol/L (10-20); BUN (Urea Nitrogen) 7 mg/dL (8.4-25.7); Calc. Creatinine Clearance 105 mL/min (70-130); Calcium 9.3 mg/dL (7.8-10.44); Carbon Dioxide 33 mmol/L (22-29); Chloride 97 mmol/L (98-107); Estimated GFR-MDRD Greater than 90; Glucose 136 mg/dL (70-105); Potassium 3.7 mmol/L (3.5-5.1); Sodium 136 mmol/L (136-145)
[2018-10-30] MEDS ORDERED: Insulin Glargine 25 UNITS in Pre-Filled Syringe 1 EACH SC SCH (09:00)
[2018-10-30] MEDS: Buprenorphine 8mg/Naloxone 2mg per 1 FILM SL SCH (09:33)
[2018-10-30] MEDS: FLUoxetine HCl 20 MG CAP PO SCH (09:35)
== END 2018-10-30 12:08 | disposition home or self-care (01) | DRG 639 ==
LOC: ERS 23:13 → IMCU/EMU 10-28 01:50
PROVIDERS: ADMIT Specialist; ATTEND Specialist
DX: E11.10 Type 2 diabetes mellitus with ketoacidosis without coma (principal); G89.29 Other chronic pain; M54.9 Dorsalgia, unspecified; I10 Essential (primary) hypertension; F41.9 Anxiety disorder, unspecified; F32.9 Major depressive disorder, single episode, unspecified; E11.43 Type 2 diabetes mellitus with diabetic autonomic (poly)neuropathy; K31.84 Gastroparesis; Z79.4 Long term (current) use of insulin; Z90.49 Acquired absence of other specified parts of digestive tract; Z90.89 Acquired absence of other organs; Z88.1 Allergy status to other antibiotic agents; Z87.891 Personal history of nicotine dependence; Z91.19 Patient's noncompliance with other medical treatment and regimen
CPT/HCPCS: 36415; 36416; 80048; 80053; 81003; 82010; 82330; 82435; 82803; 83690; 83735; 84100; 84132; 84295; 85014; 85025; 93005; 96365; 96366; 96368; 96375; J1630; J1815; J1825; J2405; J2550; J2765; J3480; J3490; J7050; Q0162

== ENCOUNTER 2018-12-26 08:41 | Inpatient (IN) | payer OTHER ==
[2018-12-26] MEDS ORDERED: Ondansetron PF 4 MG/2 ML Vial ONE ×2 (08:44→10:28)
[2018-12-26] MEDS ORDERED: Promethazine HCl 25 MG/ML VIAL ONE (09:01)
[2018-12-26 09:28] LABS: Hemoglobin 14.3 g/dL (14.0-18.0); Mean Corpuscular HGB CONC 34.5 g/dL (32.0-36.0); Mean Corpuscular Hemoglobin 31.2 pg (27.0-31.0); Mean Corpuscular Volume 90.6 fL (78.0-98.0); Mean Platelet Volume 7.6 fL (7.4-10.4); Platelet Count 225 thou/uL (130-400); RBC Distribution Width 12.4 % (11.5-14.5); Red Blood Cell (RBC) Count 4.59 mill/uL (4.70-6.10); White Blood Cell (WBC) Count 17.2 thou/uL (4.8-10.8)
[2018-12-26 09:42] LABS: ALT (SGPT) 20 U/L (8-55); AST (SGOT) 12 U/L (5-34); Albumin 4.3 g/dL (3.5-5.0); Alkaline Phosphatase 87 U/L (40-150); Anion Gap 23 mmol/L (10-20); BUN (Urea Nitrogen) 15 mg/dL (8.4-25.7); Bilirubin, Total 1.1 mg/dL (0.2-1.2); CK (CPK) 103 U/L (30-200); Calc. Creatinine Clearance 0 mL/min (70-130); Calcium 9.8 mg/dL (7.8-10.44); Carbon Dioxide 18 mmol/L (22-29); Chloride 99 mmol/L (98-107); Estimated GFR-MDRD 73; Globulin 2.4 g/dL (2.4-3.5); Glucose 392 mg/dL (70-105); Lipase 9 U/L (8-78); Magnesium 1.6 mg/dL (1.6-2.6); Potassium 4.7 mmol/L (3.5-5.1); Protein, Total 6.7 g/dL (6.0-8.3); Sodium 135 mmol/L (136-145)
[2018-12-26 09:45] LABS: Band 4 % (5-11); Eosinophils 1 % (0-10); Lymphocytes 12 % (21-51); MDiff Complete? YES; Monocytes 1 % (0-10); Neutrophil 82 % (42-75); RBC Morphology Normal
[2018-12-26 09:50] LABS: Phosphorus Less than 1.0 mg/dL (2.3-4.7)
--- NOTE | 2018-12-26 09:58 | RAD ---
PORTABLE CHEST 1 VIEW: DATE: 12/26/2018. TIME: 9:13 a.m. HISTORY: Chest pain. FINDINGS: The heart size is normal. The lungs are expanded without lobar consolidation, pneumothoraces, or ple ural effusions. IMPRESSION: No radiographic evidence of acute cardiopulmonary process. POS: [facility]
[2018-12-26] MEDS ORDERED: Nitroglycerin 2% Ointment 1 INCH/1 GM Packet ONE (10:28)
[2018-12-26] MEDS ORDERED: Aspirin Chewable 81 MG TAB ONE (10:28)
[2018-12-26] MEDS ORDERED: Acetaminophen 500 MG TAB PO SCH (11:15)
[2018-12-26 11:44] LABS: Bilirubin Negative (Negative); Blood, Urine Negative (Negative); Clarity Clear (Clear); Glucose, Urine (Dipstick) Greater than 1000 mg/dL (Negative); Leukocyte Negative Leu/uL (Negative); Nitrite Negative (Negative); Protein, Urine (Dipstick) Negative (Neg-Trace); Urobilinogen Normal mg/dL (Less than 2)
[2018-12-26 12:47] LABS: Troponin I Less than 0.010 ng/mL (< 0.028)
[2018-12-26] MEDS ORDERED: Lidocaine 1% (PF) 30 ML VIAL ONE (13:24)
[2018-12-26] MEDS ORDERED: Ondansetron PF 4 MG/2 ML Vial IVP PRN (14:28)
[2018-12-26] MEDS ORDERED: Ondansetron ODT 4 MG TAB SL PRN (14:28)
[2018-12-26 14:50] VITALS: BMI 20.7
[2018-12-26 15:39] LABS: Troponin I Less than 0.010 ng/mL (< 0.028)
--- NOTE | 2018-12-26 16:10 | CON ---
DATE OF CONSULTATION: 12/26/2018 REASON FOR CONSULTATION: Chest pressure. HISTORY OF PRESENT ILLNESS: Mr. Kwok is a 53-year-old gentleman with history of diabetes mellitus. He recently presented with chest pain. He states he has had intermittent nausea and vomiting in addition to neck pain, arm pain, and abdominal discomfort. His EKG did suggest sinus bradycardia with no acute changes. His initial studies had two troponins drawn 3 hours apart at 1900 hours and 1200 hours that have been negative. His phosphorus level was also markedly low and addition of sodium 135 [place] [id number]. PAST MEDICAL HISTORY: Diabetes mellitus, chronic back pain, back surgery, knee surgery, neck surgery. SOCIAL HISTORY: No current tobacco or alcohol use. REVIEW OF SYSTEMS: A 10-point review of systems is reviewed as above, otherwise negative. PHYSICAL EXAMINATION: GENERAL: Patient is a pleasant 53-year-old who is in no acute distress. Does appear older than stated age. VITAL SIGNS: Blood pressure 110/67, pulse 96, temperature 98.8. NEUROLOGIC: The patient is alert and oriented x3 with no focal neurologic deficits. HEENT: Sclerae without icterus. Mouth has moist mucous membranes with normal pallor. NECK: No JVD. Carotid upstroke brisk. No bruits bilaterally. LUNGS: Clear to auscultation with unlabored respirations. BACK: No scoliosis or kyphosis. CARDIAC: Regular rate and rhythm with normal S1 and S2. No S3 or S4 noted. No significant rubs, murmurs, thrills, or gallops noted throughout the precordium. PMI is not displaced. There is no parasternal heave. ABDOMEN: Soft, nontender, nondistended. No peritoneal signs present. No hepatosplenomegaly. No abnormal striae. EXTREMITIES: 2+ femoral and 2+ dorsalis pedis pulses. No cyanosis, clubbing, or edema. SKIN: No gross abnormalities. LABORATORY DATA: As above. DIAGNOSTIC DATA: EKG shows a sinus bradycardia. IMPRESSION: 1. Chest pain. 2. Diabetes mellitus. RECOMMENDATIONS: At this point, the patient will likely need disposition with coronary angiography. I am concerned about proceeding with angio today given his very low phosphorus levels. He will likely require IV supplementation. Cardiopulmonary martínez, he can affect myocardial contractility and cause significant ventricular dysrhythmias. Given that there are no acute changes on his EKG and troponin negative, I would like to defer angio at this point and supplement with IV phosphorus in addition p.o. phosphorus. Discussed the case with Dr. Giorgio Hummel and he agrees. If anything changes with serial troponins, then the benefits would outweigh the risks and proceeding with angio, but at this point, given a normal stress study with the last several months and negative troponin x2. No acute changes on EKG. I will defer. Job ID: [id number]
[2018-12-26 16:21] LABS: CKMB 1.1 ng/mL (0-6.6)
[2018-12-26] MEDS ORDERED: Potassium Phosphate 15 MMOL in Sodium Chloride 0.9% 250 ML 250 ML IVPB SCH (16:30)
[2018-12-26] MEDS ORDERED: Potassium Phosphate 12 MMOL in Sodium Chloride 0.9% 250 ML 250 ML IVPB SCH (16:45)
[2018-12-26] MEDS: Nitroglycerin 2% Ointment 1 INCH/1 GM Packet TOP SCH ×2 (17:05→23:32)
[2018-12-26] MEDS ORDERED: Sodium Chloride 0.9% 1,000 ML IV SCH (17:45)
[2018-12-26] MEDS ORDERED: Communication Order-Pharmacy FS SCH (17:45)
[2018-12-26] MEDS ORDERED: Dextrose 50% Abboject 50 ML SYRINGE IVP PRN (18:34)
[2018-12-26] MEDS ORDERED: Dextrose 5% in Water 1,000 ML IV PRN (18:34)
[2018-12-26] MEDS ORDERED: Nitroglycerin 0.4 MG TAB (25 Tab Bottle) SL PRN (18:40)
[2018-12-26] MEDS ORDERED: Ketorolac Tromethamine 30 MG/ML VIAL IVP PRN (18:40)
[2018-12-26] MEDS ORDERED: Buprenorphine 8mg/Naloxone 2mg per 1 FILM SL SCH (18:45)
[2018-12-26] MEDS ORDERED: Metoclopramide HCl 10 MG/2 ML VIAL IVP SCH (18:45)
[2018-12-26] MEDS: Promethazine HCl 25 MG in Sodium Chloride 0.9% 50 ML IVPB SCH ×2 (18:58→23:28)
[2018-12-26] MEDS: Sodium Chloride 0.9% 1,000 ML IV SCH ×3 (19:00→21:38)
[2018-12-26] MEDS: HumaLOG 300 UNITS/3 ML VIAL SC PRN (21:07)
[2018-12-26 22:33] LABS: Phosphorus 4.2 mg/dL (2.3-4.7)
[2018-12-26] MEDS: Metoclopramide HCl 10 MG/2 ML VIAL IVP SCH (23:30)
--- NOTE | 2018-12-26 23:40 | HP ---
CHIEF COMPLAINT ON ADMISSION: Admission chest pain. HISTORY OF PRESENT ILLNESS: The patient is a 53-year-old male who has significant insulin-dependent diabetes who on the day of admission awoke with nausea and vomiting. He also had chest pain that radiated up into his neck and down both arms. This has happened earlier in the year, which time he came to the hospital and had a negative stress test and was sent home. On this episode, he also has abdominal pain and reports that his "insulin has been acting up." He denies shortness of breath, but he is diaphoretic and visibly vomiting. He has severe diabetic gastroparesis and this calmly occurs when he does not take his Reglan as prescribed in his list of medications. He has not been taking his Reglan. He has a long history of noncompliance medically. He was put in the hospital for further evaluation and probable cardiac catheterization. PAST MEDICAL HISTORY: As previously mentioned hospitalized earlier this year, October 28 precisely for similar complaints. He has diabetic gastroparesis, which is severe. He has had numerous admissions for diabetic ketoacidosis, has chronic back pain, history of polysubstance abuse, hypertension. Last hospitalization for DKA was 09/14/2018, hypophosphatemia-severe. PAST SURGICAL HISTORY: Includes back surgeries and neck surgeries, appendectomy, tonsillectomy, right knee surgery. PAST PSYCHIATRIC HISTORY: Significant for anxiety and depression. ALLERGIES: HE IS ALLERGIC TO VANCOMYCIN AND LEVOFLOXACIN. SOCIAL HISTORY: He is . Former tobacco smoker, quit more than 10 years ago. Denies alcohol use, has regular chronic use of THC and other illicit drugs. CURRENT MEDICATIONS: At the time of admission include: 1. Lantus 30 units subcu daily using a sliding scale. 2. Also uses Humalog on a sliding scale. 3. Prozac 20 mg daily. 4. He should be on Reglan 10 mg daily, but this is not listed among his current medications. REVIEW OF SYSTEMS: At the time of admission is significant for general aches, pains and the usual complaint of pain, visibly vomiting at the time of admission, alert and cooperative. HEENT: Denies any lesions in the ears, nose, throat or drainage. CHEST: Denies shortness of breath, coughing. CARDIOVASCULAR: Here for substernal pressure and pain. Denies palpitations. GI: Significant for nausea, vomiting. No diarrhea. : Denies dysuria or blood in urine or stool. EXTREMITIES: No significant complaints about muscles or joints or weakness. SKIN: No new rashes or lesions. NEUROLOGIC: Complains of headache, but denies any new hypesthesia or anesthesia. MUSCULOSKELETAL: He complains of neck pain (old). PHYSICAL EXAMINATION: At the time of admission, VITAL SIGNS: Blood pressure is 129/67, pulse 96, temperature 98.8, respirations 20, O2 saturation 99% on room air. GENERAL: This is a thin, alert, cooperative male. HEENT: Normocephalic, atraumatic. Pupils are equal, round, and reactive to light. Extraocular muscles are intact. TMs, nares and pharynx clear. NECK: Supple. Tender along the spinous processes. Mild spasms are noted. Range of motion is adequate at this time. CHEST: Clear to auscultation. HEART: Regular rate and rhythm without murmur. ABDOMEN: Soft without organomegaly. : Deferred. EXTREMITIES: Without clubbing, cyanosis, or edema. Normal range of motion present. SKIN: No acute rashes or lesions. NEUROLOGIC: Gait and cerebellar function intact. Sensory exam is intact. Mental status is at baseline. LABORATORY DATA: Lab work on admission thus far shows an EKG with flipped T-waves anteriorly and laterally. His sodium is 135, potassium 4.7, chloride 99, CO2 19, BUN is 15, creatinine 1.06 with a GFR of 73, glucose 392, phosphorus is less than 1.0, magnesium 1.6. Liver functions unremarkable. Troponins are negative. Lipase is negative. Urinalysis is positive for protein and sugar. Beta-hydroxybutyrate is elevated at 5. WBCs elevated at 17.2, hemoglobin 14.3, hematocrit 41.6 with platelets at 225. ASSESSMENT: 1. Chest pain with previous history of negative stress test, but now with EKG changes indicative of possible anterior ischemia. 2. Insulin-dependent diabetes. Long history of noncompliance. 3. Diabetic gastroparesis. 4. Numerous admissions for diabetic ketoacidosis associated with gastroparesis and protracted vomiting. 5. Depression. PLAN: Plan will be to hydrate this man who has been vomiting all day. Serial cardiac enzymes. Replace his phosphorus. Provide antiemetics. Restart his Reglan. Serially re-evaluate him. Dr. Dawn has already been consulted and once he is medically stable, we will probably do a cardiac catheterization to definitively show whether there is actual cardiac disease or not. We will prevent narcotic withdrawal with Suboxone and provide pain medication with Toradol since his kidneys are stable. Job ID: [id number]
[2018-12-26] MEDS ORDERED: Promethazine HCl 25 MG in Sodium Chloride 0.9% 50 ML IVPB PRN (23:59)
[2018-12-27] MEDS: Sodium Chloride 0.9% 1,000 ML IV SCH (00:40)
[2018-12-27] MEDS: HumaLOG 300 UNITS/3 ML VIAL SC PRN ×4 (00:56→22:11)
[2018-12-27] MEDS: Metoclopramide HCl 10 MG/2 ML VIAL IVP SCH ×2 (04:41→12:18)
[2018-12-27] MEDS ORDERED: Sodium Chloride 0.9% 1,000 ML IV SCH ×3 (04:45→07:45)
[2018-12-27 05:50] LABS: #Lymphocytes 2.1 thou/uL (1.20-3.40); #Monocytes 1.1 thou/uL (0.11-0.59); #Neutrophils 12.8 thou/uL (1.40-6.50); %Basophils 0.1 % (0.0-1.0); %Eosinophils 0.1 % (0.0-10.0); %Lymphocytes 12.9 % (21.0-51.0); %Monocytes 6.6 % (0.0-10.0); %Neutrophils 80.3 % (42.0-75.0); Hemoglobin 12.6 g/dL (14.0-18.0); Mean Corpuscular HGB CONC 33.3 g/dL (32.0-36.0); Mean Corpuscular Hemoglobin 31.1 pg (27.0-31.0); Mean Corpuscular Volume 93.3 fL (78.0-98.0); Platelet Count 190 thou/uL (130-400); RBC Distribution Width 12.6 % (11.5-14.5); Red Blood Cell (RBC) Count 4.06 mill/uL (4.70-6.10); White Blood Cell (WBC) Count 15.9 thou/uL (4.8-10.8)
[2018-12-27 06:10] LABS: Phosphorus 3.7 mg/dL (2.3-4.7)
[2018-12-27 06:24] LABS: Anion Gap 21 mmol/L (10-20); BUN (Urea Nitrogen) 18 mg/dL (8.4-25.7); Calc. Creatinine Clearance 78 mL/min (70-130); Calcium 7.9 mg/dL (7.8-10.44); Carbon Dioxide 13 mmol/L (22-29); Chloride 104 mmol/L (98-107); Estimated GFR-MDRD 74; Glucose 312 mg/dL (70-105); Potassium 4.5 mmol/L (3.5-5.1); Sodium 133 mmol/L (136-145)
[2018-12-27] MEDS ORDERED: Lidocaine 1% (PF) 30 ML VIAL ONE (06:47)
[2018-12-27] MEDS ORDERED: Fentanyl 100 MCG/2 ML VIAL ONE (07:19)
[2018-12-27] MEDS ORDERED: Midazolam HCl 2 mg/2 ml Vial ONE (07:20)
[2018-12-27] MEDS ORDERED: Sodium Chloride 0.9% 200 ML IV PRN (07:39)
[2018-12-27] MEDS ORDERED: Nitroglycerin 0.4 MG TAB (25 Tab Bottle) SL PRN (07:39)
[2018-12-27] MEDS ORDERED: Acetaminophen/Codeine 30-300mg Tablet PO PRN ×2 (07:39)
[2018-12-27] MEDS: Buprenorphine 8mg/Naloxone 2mg per 1 FILM SL SCH (09:54)
[2018-12-27] MEDS ORDERED: Iopamidol 370 76% 100 ML VIAL ONE (14:59)
[2018-12-27 16:51] LABS: Base Excess-Venous -1.2 mmol/L (-2.0 to 3.0); Bicarbonate (HCO3v) 18.4 mmol/L (22.0-28.0); CO2 Tension (PvCO2) 20.1 mmHg (40.0-50.0); Potassium 4.6 mmol/L (3.5-5.1); Sodium 136 mmol/L (138-145); vO2 Saturation-calc 32.9 % (60.0-85.0)
[2018-12-27 16:52] LABS: Calcium, Ionized 1.14 mmol/L (See Comments:); T. Carbon Dioxide 19.1 mmol/L (22.0-28.0)
[2018-12-27] MEDS: Metoclopramide HCl 10 MG TAB PO SCH ×2 (17:32→20:25)
[2018-12-28 05:02] LABS: Phosphorus 1.8 mg/dL (2.3-4.7)
[2018-12-28] MEDS: Metoclopramide HCl 10 MG TAB PO SCH (08:49)
[2018-12-28] MEDS ORDERED: PHOS-NAK 1 PKT PACK PO SCH (09:00)
[2018-12-28 09:04] VITALS: BP 156/74; TEMP 98.4
[2018-12-28] MEDS: Buprenorphine 8mg/Naloxone 2mg per 1 FILM SL SCH (09:13)
== END 2018-12-28 11:38 | disposition home or self-care (01) | DRG 287 ==
LOC: ERS 08:41 → ERHOLD 10:28 → OBSVTOIN 10:28 → 2SW 14:31 → 2NO 12-27 21:26
PROVIDERS: ADMIT Specialist; ATTEND Specialist
PROC: 4A023N7 Measurement of Cardiac Sampling and Pressure, Left Heart, Percutaneous Approach (ICD-10-PCS; principal; 2018-12-26)
PROC: B2111ZZ Fluoroscopy of Multiple Coronary Arteries using Low Osmolar Contrast (ICD-10-PCS; 2018-12-26)
PROC: B2151ZZ Fluoroscopy of Left Heart using Low Osmolar Contrast (ICD-10-PCS; 2018-12-26)
DX: I25.9 Chronic ischemic heart disease, unspecified (principal); F32.9 Major depressive disorder, single episode, unspecified; F41.9 Anxiety disorder, unspecified; G89.29 Other chronic pain; M54.9 Dorsalgia, unspecified; I10 Essential (primary) hypertension; Z87.891 Personal history of nicotine dependence; Z79.4 Long term (current) use of insulin; Z90.89 Acquired absence of other organs; Z90.49 Acquired absence of other specified parts of digestive tract; Z88.1 Allergy status to other antibiotic agents; Z91.14 Patient's other noncompliance with medication regimen; Z79.899 Other long term (current) drug therapy; E11.43 Type 2 diabetes mellitus with diabetic autonomic (poly)neuropathy; K31.84 Gastroparesis
CPT/HCPCS: 36415; 36416; 71045; 76942; 80048; 80053; 81003; 82010; 82330; 82550; 82553; 82803; 83690; 83735; 84100; 84484; 85025; 93005; 93458; 94760; 96361; 96374; 96375; 96376; 99152; C1769; J1644; J2001; J2250; J2405; J2550; J2765; J3010; J7050; J8597; Q0162; Q9967

== ENCOUNTER 2018-12-31 11:13 | Inpatient (IN) | payer OTHER ==
[2018-12-31 11:38] LABS: Bilirubin Negative (Negative); Blood, Urine Negative (Negative); Clarity Clear (Clear); Glucose, Urine (Dipstick) Greater than 1000 mg/dL (Negative); Leukocyte Negative Leu/uL (Negative); Nitrite Negative (Negative); Protein, Urine (Dipstick) 10 mg/dL (Neg-Trace); Urobilinogen Normal mg/dL (Less than 2)
[2018-12-31] MEDS ORDERED: Promethazine HCl 25 MG/ML VIAL ONE ×2 (12:01→16:42)
[2018-12-31 12:08] LABS: #Lymphocytes 0.7 thou/uL (1.20-3.40); #Monocytes 0.3 thou/uL (0.11-0.59); #Neutrophils 11.1 thou/uL (1.40-6.50); %Basophils 0.3 % (0.0-1.0); %Eosinophils 0.2 % (0.0-10.0); %Lymphocytes 6.1 % (21.0-51.0); %Neutrophils 91.4 % (42.0-75.0); Hemoglobin 15.6 g/dL (14.0-18.0); Mean Corpuscular Hemoglobin 31.4 pg (27.0-31.0); Mean Corpuscular Volume 92.4 fL (78.0-98.0); Platelet Count 294 thou/uL (130-400); RBC Distribution Width 12.5 % (11.5-14.5); Red Blood Cell (RBC) Count 4.96 mill/uL (4.70-6.10); White Blood Cell (WBC) Count 12.2 thou/uL (4.8-10.8)
[2018-12-31 12:20] LABS: ALT (SGPT) 17 U/L (8-55); AST (SGOT) 11 U/L (5-34); Albumin 4.4 g/dL (3.5-5.0); Alkaline Phosphatase 80 U/L (40-150); Anion Gap 36 mmol/L (10-20); BUN (Urea Nitrogen) 14 mg/dL (8.4-25.7); Bilirubin, Total 0.6 mg/dL (0.2-1.2); Calc. Creatinine Clearance 0 mL/min (70-130); Calcium 9.7 mg/dL (7.8-10.44); Chloride 90 mmol/L (98-107); Estimated GFR-MDRD 50; Globulin 2.8 g/dL (2.4-3.5); Glucose 434 mg/dL (70-105); Magnesium 1.5 mg/dL (1.6-2.6); Phosphorus 3.9 mg/dL (2.3-4.7); Potassium 4.8 mmol/L (3.5-5.1); Protein, Total 7.2 g/dL (6.0-8.3); Sodium 129 mmol/L (136-145)
[2018-12-31 12:26] LABS: Carbon Dioxide 8 mmol/L (22-29)
[2018-12-31] MEDS ORDERED: Acetaminophen 1,000 MG in Premix Bag 1 BAG IVPB SCH (13:15)
[2018-12-31] MEDS ORDERED: Insulin Regular 100 units/100 ml in NS IVPB SCH (13:15)
[2018-12-31] MEDS ORDERED: Sodium Chloride 0.9% 1,000 ML IV SCH (13:15)
[2018-12-31 15:38] LABS: BUN (Urea Nitrogen) 17 mg/dL (8.4-25.7); Calc. Creatinine Clearance 0 mL/min (70-130); Calcium 8.4 mg/dL (7.8-10.44); Chloride 96 mmol/L (98-107); Estimated GFR-MDRD 51; Glucose 437 mg/dL (70-105); Sodium 129 mmol/L (136-145)
[2018-12-31 15:41] LABS: Carbon Dioxide Less than 8 mmol/L (22-29)
[2018-12-31 20:04] LABS: BUN (Urea Nitrogen) 15 mg/dL (8.4-25.7); Calc. Creatinine Clearance 0 mL/min (70-130); Calcium 8.1 mg/dL (7.8-10.44); Chloride 103 mmol/L (98-107); Estimated GFR-MDRD 56; Glucose 274 mg/dL (70-105); Potassium 3.9 mmol/L (3.5-5.1); Sodium 131 mmol/L (136-145)
[2018-12-31 20:11] LABS: Carbon Dioxide Less than 8 mmol/L (22-29)
[2018-12-31] MEDS ORDERED: Sodium Chloride 0.9% 1,000 ML IV PRN ×4 (20:25)
[2018-12-31] MEDS ORDERED: Dextrose 5 %-0.45 % NaCl 1,000 ML IV PRN (20:25)
[2018-12-31] MEDS ORDERED: Dextrose 5% in Water 1,000 ML IV PRN (20:25)
[2018-12-31] MEDS ORDERED: Dextrose 50% Abboject 50 ML SYRINGE SLOW IVP PRN (20:25)
[2018-12-31] MEDS ORDERED: NS 0.9% w/ 20 MEQ KCL 1,000 ML/1,000 ML BAG IV PRN ×2 (20:25)
[2018-12-31] MEDS ORDERED: D5 1/2 NS w/20 mEq KCL 1,000 ML IV PRN (20:25)
[2018-12-31] MEDS ORDERED: Potassium Chloride 40 MEQ in Sodium Chloride 0.9% 250 ML 250 ML IVPB PRN (20:26)
[2018-12-31] MEDS ORDERED: Potassium Chloride 20 MEQ TAB PO PRN (20:26)
[2018-12-31] MEDS ORDERED: Magnesium Oxide 400 MG TAB PO PRN ×2 (20:26)
[2018-12-31] MEDS ORDERED: CCU ELECTROLYTE REPLACEMENT PROTOCOL FS PRN (20:26)
[2018-12-31] MEDS ORDERED: PHOS-NAK 1 PKT PACK PO PRN ×2 (20:26)
[2018-12-31] MEDS ORDERED: Potassium Phosphate 9 MMOL in Sodium Chloride 0.9% 100 ML IVPB PRN (20:26)
[2018-12-31] MEDS ORDERED: Potassium Phosphate 12 MMOL in Sodium Chloride 0.9% 250 ML 250 ML IV PRN (20:26)
[2018-12-31] MEDS ORDERED: Magnesium 2 GM/50 ML 2 GM in Premix Bag 1 BAG IVPB PRN (20:26)
[2018-12-31] MEDS ORDERED: Potassium Phosphate 15 MMOL in Sodium Chloride 0.9% 250 ML 250 ML IV PRN (20:26)
[2018-12-31] MEDS ORDERED: Potassium Chloride 40 MEQ in Premix Bag 1 BAG IVPB PRN (20:26)
[2018-12-31] MEDS ORDERED: Insulin Regular 300 UNITS/3 ML VIAL IVP SCH (20:30)
[2018-12-31] MEDS ORDERED: HUMULIN R 100 UNITS in Sodium Chloride 0.9% 100 ML IVPB SCH (20:30)
[2018-12-31] MEDS ORDERED: ADD ELECTROLYTE REPLACEMENT SET TO PROFILE FS SCH (20:30)
[2018-12-31] MEDS ORDERED: D5 1/2 NS w/20 mEq KCL 1,000 ML ONE (20:48)
[2018-12-31 21:31] VITALS: BMI 20.4
[2018-12-31] MEDS: Promethazine HCl 25 MG in Sodium Chloride 0.9% 50 ML IVPB PRN (21:58)
--- NOTE | 2018-12-31 23:29 | HP ---
CHIEF COMPLAINT: On admission, DKA. HISTORY OF PRESENT ILLNESS: The patient is a 53-year-old male, who just left the hospital on 12/28/2018. He never picked up the Reglan that was prescribed and proceeded to vomit due to gastroparesis and since that time he has continued to vomit, keeping very little down by mouth. His finally brought him in on the day of admission for dehydration and DKA. In the ER, he was noted to have beta hydroxybutyrate elevated at 13.86. His urine had greater than 1000 glucose and greater than 150 ketones. He had unmeasurable carbon dioxide with an anion gap too low to appreciate. At this point, IV hydration began profusely. This did help calm his nausea and vomiting. He will now be placed on scheduled Reglan as well as continuing the IV fluids, antiemetics as needed and an insulin drip. Initial glucose presentation was 456, it is now 329. PAST MEDICAL HISTORY: As mentioned previously, recently discharged 3 days ago for chest pain. Cardiac catheterization revealed he has no coronary artery disease. He has insulin-dependent diabetes, for which he is very noncompliant. He has diabetic gastroparesis, for which he is very noncompliant, stating "the [place] will get give me my medicine." He has numerous hospitalizations for diabetic ketoacidosis due to his noncompliance. He has a history of chronic back pain with a history of polysubstance abuse, hypertension, and hypophosphatemia; on this admission, phosphate 3.9. PAST SURGICAL HISTORY: Includes most recently 3 days ago, a cardiac catheterization. He has had several back surgeries, neck surgeries, appendectomy, tonsillectomy, and right knee surgery. PAST PSYCHIATRIC HISTORY: Significant for anxiety and depression. ALLERGIES: TO VANCOMYCIN AND LEVOFLOXACIN. SOCIAL HISTORY: He is . Former tobacco smoker, quit more than 10 years ago. Denies recent alcohol use, but he is a chronic user of THC and other illicit drugs. CURRENT MEDICATIONS: Include; 1. Lantus 30 units subcu, using a sliding scale of Humalog. 2. Prozac 20 mg daily. 3. 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 REVIEW OF SYSTEMS: CONSTITUTIONAL: Denies fever, chills, but he has had general malaise, aches and pains and chronic nausea with repeated emesis. HEENT: No lesions in ear, nose, or throat. CHEST: Denies shortness of breath or cough. CARDIOVASCULAR: Denies any recent chest pain or palpitations. GI: Has chronic nausea and vomiting. Denies diarrhea. : Denies dysuria, blood in urine or stool. MUSCULOSKELETAL: Has diffuse aches and pains in all major muscle groups. SKIN: No new rashes or lesions. NEUROLOGIC: He has headache, but denies any hypoesthesia, anesthesia, or trouble with mentation. PHYSICAL EXAMINATION: VITAL SIGNS: At the time of admission, pulse was running at 110, blood pressure is 130/70. He is afebrile. GENERAL: This is a thin, cachectic male, alert, oriented, cooperative. HEENT: Normocephalic, atraumatic. Pupils are equal, round, and reactive to light. Extraocular muscles are intact. TMs, nares are clear. Pharynx is dry. NECK: Supple. CHEST: Clear to auscultation. HEART: Tachycardic. ABDOMEN: Tender mid epigastrically due to protracted vomiting. No appreciable organomegaly. : Deferred. EXTREMITIES: Without clubbing, cyanosis, or edema. Muscle wasting is generally noted. SKIN: With poor turgor. No acute lesions. NEUROLOGIC: Cranial nerves are intact. Gait and cerebellar function are not tested at this time. Sensory exam is grossly intact. Mental status is at baseline. LABORATORY DATA: Lab work on this admission showed WBCs at 12.2, hemoglobin 15.6, hematocrit 45.9 with platelets at 294. Sodium 129, potassium 4.8, chloride 90, CO2 less than 8, anion gap 36, BUN 14, creatinine 1.49 with an estimated GFR 50, glucose 434, calcium 9.7, phosphorus 3.9, magnesium 1.5, total bilirubin 0.6. Liver functions unremarkable. Urine shows positive glucose and ketones. Toxicology positive for beta hydroxybutyrate 13.86. ASSESSMENT: 1. Diabetic ketoacidosis. 2. Hypomagnesemia. 3. Hyponatremia. 4. Diabetic gastroparesis with noncompliance with medicine. PLAN: Plan will be [facility] admission for insulin drip and DKA protocol. Serial re-evaluation. We will replace his magnesium and follow him closely per protocol. We will begin him on the Reglan q.6 and have promethazine available when the Zofran fails. Also Suboxone film 12/14 once a day for his chronic pain. Job ID: [id number]
[2019-01-01] MEDS: Metoclopramide HCl 10 MG/2 ML VIAL IVP SCH ×4 (00:11→18:26)
[2019-01-01 04:41] LABS: #Eosinphils 0.1 thou/uL (0.0-0.7); #Lymphocytes 2.4 thou/uL (1.20-3.40); #Monocytes 0.7 thou/uL (0.11-0.59); #Neutrophils 8.5 thou/uL (1.40-6.50); %Basophils 0.3 % (0.0-1.0); %Eosinophils 0.6 % (0.0-10.0); %Lymphocytes 20.5 % (21.0-51.0); %Monocytes 6.3 % (0.0-10.0); %Neutrophils 72.3 % (42.0-75.0); Hemoglobin 12.6 g/dL (14.0-18.0); Mean Corpuscular HGB CONC 35.3 g/dL (32.0-36.0); Mean Corpuscular Hemoglobin 31.8 pg (27.0-31.0); Mean Platelet Volume 6.9 fL (7.4-10.4); Platelet Count 229 thou/uL (130-400); RBC Distribution Width 12.3 % (11.5-14.5); Red Blood Cell (RBC) Count 3.95 mill/uL (4.70-6.10); White Blood Cell (WBC) Count 11.7 thou/uL (4.8-10.8)
[2019-01-01 04:50] LABS: Anion Gap 10 mmol/L (10-20); BUN (Urea Nitrogen) 10 mg/dL (8.4-25.7); Calc. Creatinine Clearance 89 mL/min (70-130); Calcium 8.1 mg/dL (7.8-10.44); Carbon Dioxide 19 mmol/L (22-29); Chloride 108 mmol/L (98-107); Estimated GFR-MDRD 87; Glucose 181 mg/dL (70-105); Magnesium 1.9 mg/dL (1.6-2.6); Potassium 3.5 mmol/L (3.5-5.1); Sodium 133 mmol/L (136-145)
[2019-01-01] MEDS: Promethazine HCl 25 MG in Sodium Chloride 0.9% 50 ML IVPB PRN (07:34)
[2019-01-01] MEDS: Buprenorphine 8mg/Naloxone 2mg per 1 FILM SL SCH (09:45)
[2019-01-01] MEDS: Insulin Glargine 30 UNITS in Pre-Filled Syringe 1 EACH SC SCH (11:20)
[2019-01-01] MEDS: Insulin Regular 300 UNITS/3 ML VIAL SC PRN ×2 (11:55→15:58)
[2019-01-02] MEDS: Metoclopramide HCl 10 MG/2 ML VIAL IVP SCH ×2 (00:21→06:32)
[2019-01-02] MEDS: Promethazine HCl 25 MG in Sodium Chloride 0.9% 50 ML IVPB PRN ×2 (00:45→17:57)
[2019-01-02 06:37] LABS: Anion Gap 10 mmol/L (10-20); BUN (Urea Nitrogen) 6 mg/dL (8.4-25.7); Calc. Creatinine Clearance 118 mL/min (70-130); Calcium 8.5 mg/dL (7.8-10.44); Carbon Dioxide 29 mmol/L (22-29); Chloride 102 mmol/L (98-107); Estimated GFR-MDRD Greater than 90; Glucose 138 mg/dL (70-105); Potassium 3.4 mmol/L (3.5-5.1); Sodium 138 mmol/L (136-145)
[2019-01-02] MEDS: Insulin Glargine 30 UNITS in Pre-Filled Syringe 1 EACH SC SCH (08:10)
[2019-01-02] MEDS: Buprenorphine 8mg/Naloxone 2mg per 1 FILM SL SCH (08:29)
[2019-01-02] MEDS: Metoclopramide HCl 10 MG TAB PO SCH ×3 (11:27→20:21)
[2019-01-03] MEDS: Insulin Regular 300 UNITS/3 ML VIAL SC PRN (05:16)
[2019-01-03 07:06] VITALS: BP 151/79; TEMP 98.3
[2019-01-03] MEDS: Insulin Glargine 30 UNITS in Pre-Filled Syringe 1 EACH SC SCH (07:51)
[2019-01-03] MEDS: Metoclopramide HCl 10 MG TAB PO SCH (07:51)
[2019-01-03] MEDS: Buprenorphine 8mg/Naloxone 2mg per 1 FILM SL SCH (08:32)
== END 2019-01-03 09:26 | disposition home or self-care (01) | DRG 638 ==
LOC: ERS 11:13 → CCU 18:00 → T4-B 01-01 16:38
PROVIDERS: ADMIT Specialist; ATTEND Specialist
DX: E10.10 Type 1 diabetes mellitus with ketoacidosis without coma (principal); E87.1 Hypo-osmolality and hyponatremia; M54.9 Dorsalgia, unspecified; G89.29 Other chronic pain; I10 Essential (primary) hypertension; E83.39 Other disorders of phosphorus metabolism; F41.9 Anxiety disorder, unspecified; F32.9 Major depressive disorder, single episode, unspecified; E83.42 Hypomagnesemia; E10.43 Type 1 diabetes mellitus with diabetic autonomic (poly)neuropathy; K31.84 Gastroparesis; Z79.4 Long term (current) use of insulin; Z90.49 Acquired absence of other specified parts of digestive tract; Z87.891 Personal history of nicotine dependence; Z79.899 Other long term (current) drug therapy; Z91.14 Patient's other noncompliance with medication regimen
CPT/HCPCS: 36415; 36416; 80048; 80053; 81003; 82010; 83735; 83930; 84100; 85025; 93005; J0131; J1815; J2550; J2765; J3475; J3480; J3490; J7050; J8597